=== PATIENT | female | born 1990 | race Caucasian/White ===

== ENCOUNTER 2016-07-31 22:28 | Emergency (ER) | payer MEDICAID ==
[~2016-07-31] VITALS: Ht 162.6 cm; Wt 107.3 kg
[~2016-07-31 22:28] MED LIST: AMOX-462 PO; IBUP-1547 PO
[2016-07-31] MEDS ORDERED: ASPIRIN 81 MG CHEWABLE TABLET PO ONE (23:15)
[2016-07-31 23:22] LABS: HEMATOCRIT 35.2 % (36-46); HEMOGLOBIN 11.8 g/dL (12.0-16.0); MEAN CORPUSCULAR HEMOGLOBIN 30.4 pg (26.0-34.0); MEAN CORPUSCULAR HGB CONC 33.6 G/dL (31.0-37.0); MEAN CORPUSCULAR VOLUME 90 fL (80-100); PLATELET COUNT (AUTO) 212 K/uL (150-450); RED BLOOD CELL COUNT(AUTO) 3.89 MIL/uL (4.00-5.20); RED CELL DISTRIBUTION WIDTH 14.3 % (11.5-14.5)
[2016-07-31 23:23] LABS: WHITE BLOOD COUNT (AUTO) 14.1 K/uL (4.5-11.0)
[2016-07-31 23:29] LABS: ANION GAP 11 mmol/L (8-16); CALCIUM, TOTAL 8.7 mg/dL (8.8-10.5); CARBON DIOXIDE 23 mmol/L (22-29); CHLORIDE 106 mmol/L (98-107); CREATININE 0.69 mg/dL (0.60-1.30); GLOMERULAR FILTR. RATE CALC > 60 mL/min (>60); POTASSIUM 3.7 mmol/L (3.5-5.1); SODIUM SERUM 140 mmol/L (136-145); UREA NITROGEN, BLOOD 18 mg/dL (7-18)
[2016-07-31] MEDS ORDERED: LABETALOL HCL 5 MG/ML 20 ML VIAL IVP ONE (23:45)
[2016-07-31 23:54] LABS: ALANINE AMINOTRANSFERASE 92 U/L (12-78); ALBUMIN 2.9 g/dL (3.4-5.0); ASPARTATE AMINOTRANSFERASE 90 U/L (15-37); BILIRUBIN,TOTAL 0.3 mg/dL (0.1-1.0); CREATINE KINASE MB 0.6 ng/mL (0-5); CREATINE KINASE, TOTAL 105 U/L (26-192); TOTAL PROTEIN, SERUM 6.7 g/dL (6.4-8.2)
[2016-08-01 00:01] LABS: B-TYPE NATRIURETIC PEPTIDE 139 pg/mL (0-100)
[2016-08-01 00:22] LABS: LYMPHOCYTES % (MANUAL) 30 % (22-44); TOTAL CELLS COUNTED 100
[2016-08-01] MEDS ORDERED: LABETALOL HCL 100 MG TABLET PO ONE (02:30)
[2016-08-01 02:52] LABS: ADD UA MICROSCOPIC YES; APPEARANCE,URINE CLEAR (CLEAR); GLUCOSE, URINE (UA) NEGATIVE (NEGATIVE); KETONES,URINE NEGATIVE (NEGATIVE); LEUKOCYTE ESTERASE ,URINE NEGATIVE (NEGATIVE); OCCULT BLOOD,URINE LARGE (NEGATIVE); PROTEIN,URINE NEGATIVE (NEGATIVE)
[2016-08-01 02:57] LABS: SQUAMOUS EPITHELIAL CELL,UR Few /LPF (None Seen)
[2016-08-01 03:05] VITALS: BP 140/84
== END 2016-08-01 03:06 | disposition home or self-care (01) ==
LOC: EMS 22:30
DX: I10 Essential (primary) hypertension (principal)
CPT/HCPCS: 36415; 71010; 80053; 81001; 82550; 82553; 83880; 84484; 85025; 93005; 96374; 99285; J3490

== ENCOUNTER 2020-01-04 14:24 | Emergency (ER) | payer MEDICAID ==
[~2020-01-04] VITALS: Ht 162.6 cm; Wt 84.1 kg
[2020-01-04 14:33] VITALS: BP 136/59
[2020-01-04] MEDS ORDERED: DEXAMETHASONE SOD PHOS 4 MG/ML 5 ML VIAL IM ONE (15:15)
[2020-01-04] MEDS ORDERED: IBUPROFEN 600 MG TABLET PO ONE (15:15)
== END 2020-01-04 15:50 | disposition home or self-care (01) ==
LOC: EMS 14:24
DX: J02.8 Acute pharyngitis due to other specified organisms (principal); R13.10 Dysphagia, unspecified
CPT/HCPCS: 87430; 96372; 99283; J1100

== ENCOUNTER 2022-06-19 19:13 | Emergency (ER) | payer MEDICAID ==
[~2022-06-19] VITALS: Ht 165.1 cm; Wt 102.3 kg
[2022-06-19] MEDS ORDERED: ACETAMINOPHEN 500 MG TABLET PO ONE (19:45)
[2022-06-19 20:15] LABS: BASOPHILS % (AUTO) 1.1 % (0.0-2.0); EOSINOPHILS % (AUTO) 1.4 % (1.0-6.0); HEMATOCRIT 40.1 % (36-46); HEMOGLOBIN 14.2 g/dL (12.0-16.0); LYMPHOCYTES # (AUTO) 2.7 K/uL (1.0-4.8); LYMPHOCYTES % (AUTO) 29.9 % (22.0-44.0); MEAN CORPUSCULAR HEMOGLOBIN 31.8 pg (26.0-34.0); MEAN CORPUSCULAR HGB CONC 35.3 G/dL (31.0-37.0); MEAN CORPUSCULAR VOLUME 90 fL (80-100); MONOCYTES # (AUTO) 0.5 K/uL (0.1-1.0); MONOCYTES % (AUTO) 5.1 % (2.0-9.0); NEUTROPHILS # (AUTO) 5.6 K/uL (1.8-7.7); NEUTROPHILS % (AUTO) 62.5 % (40.0-70.0); PLATELET COUNT (AUTO) 249 K/uL (150-450); RED BLOOD CELL COUNT(AUTO) 4.45 MIL/uL (4.00-5.20); RED CELL DISTRIBUTION WIDTH 13.3 % (11.5-14.5)
[2022-06-19 20:22] LABS: ANION GAP 9 mmol/L (8-16); CARBON DIOXIDE 27 mmol/L (22-29); CHLORIDE 105 mmol/L (98-107); CREATININE 0.62 mg/dL (0.60-1.30); GLOMERULAR FILTR. RATE CALC > 60 mL/min (>60); GLUCOSE,RANDOM 141 mg/dL (70-110); POTASSIUM 3.1 mmol/L (3.5-5.1); SODIUM SERUM 141 mmol/L (136-145); UREA NITROGEN, BLOOD 11 mg/dL (7-18)
[2022-06-19 20:34] LABS: HCG,QUANTITATIVE < 1 mIU/mL (0-6)
[2022-06-19] MEDS ORDERED: KETOROLAC TROMETHAMINE 30 MG/ML VIAL IVP ONE (21:00)
[2022-06-19 21:06] LABS: GLUCOMETER DEV NAME(LOC) ERT.5; GLUCOSE,POINT OF CARE 144 MG/DL (70-110)
[2022-06-19 21:39] VITALS: BP 132/91
== END 2022-06-19 21:39 | disposition home or self-care (01) ==
LOC: EMS 20:52
DX: G62.9 Polyneuropathy, unspecified (principal); M25.511 Pain in right shoulder; R03.0 Elevated blood-pressure reading, without diagnosis of hypertension; R51.9 Headache, unspecified
CPT/HCPCS: 99285; 96374; 70450; 71045; 80048; 82962; 84484; 84702; 85025; 36415; 93005; 82948; J1885

== ENCOUNTER 2024-05-06 17:55 | Emergency (ER) | payer MEDICAID, OTHER ==
[~2024-05-06] VITALS: Ht 175.3 cm; Wt 100.0 kg
[2024-05-06 18:27] VITALS: TEMP 97.6
[2024-05-06] MEDS: LIDOCAINE 5% TRANSDERMAL PATCH TD ONE ×2 (19:14→19:51)
[2024-05-06] MEDS: PredniSONE 20 MG TABLET PO ONE (19:50)
[2024-05-06] MEDS: KETOROLAC TROMETHAMINE 30 MG/ML VIAL IM ONE (19:50)
[2024-05-06] MEDS: HYDROCODONE/ACETAMINOPHEN 5-325 MG TABLET PO ONE (20:47)
[2024-05-06] MEDS: METHOCARBAMOL 500 MG TABLET PO ONE (20:47)
[2024-05-06] MEDS ORDERED: IBUP-1492 PO (20:58)
[2024-05-06] MEDS ORDERED: HYDR-4062 PO (20:58)
[2024-05-06] MEDS ORDERED: METH-812 PO (20:58)
[2024-05-06 21:13] VITALS: BP 139/88; PULSE 79; RESP 15; O2SAT 98
== END 2024-05-06 21:54 | disposition home or self-care (01) ==
LOC: EMS 17:55
DX: M62.830 Muscle spasm of back (principal); M54.2 Cervicalgia; Z87.59 Personal history of other complications of pregnancy, childbirth and the puerperium
CPT/HCPCS: 99284; 84703; 96372; J1885; J7512